=== PATIENT | female | born 1965 | race Two or more races ===

== ENCOUNTER → 2020-12-19 | Day surgery (SDC) | payer OTHER | END | disposition home or self-care (01) | LOC: FMAMMOTONE 11:27 | PROVIDERS: ATTEND Family Medicine | PROC: 0HBT3ZX Excision of Right Breast, Percutaneous Approach, Diagnostic (ICD-10-PCS; principal; 2020-12-19) | DX: D05.01 Lobular carcinoma in situ of right breast (principal); D05.11 Intraductal carcinoma in situ of right breast; N64.89 Other specified disorders of breast; R92.8 Other abnormal and inconclusive findings on diagnostic imaging of breast | CPT/HCPCS: 19081; 76098-TC-FY; 87899; 88305-TC; 88341-TC; 88342-TC; A4648 ==

== ENCOUNTER 2021-08-08 06:44 | Day surgery (SDC) | payer OTHER ==
[2021-08-06 15:52] VITALS: BMI 32.4
[2021-08-08] MEDS ORDERED: PROPOFOL 20 ML ONE (08:33)
[2021-08-08] MEDS ORDERED: MIDAZOLAM HCL 2 MG/2 ML SINGLE DOSE VIAL ONE (08:33)
[2021-08-08] MEDS ORDERED: BUPIVACAINE HCL 100 ML ONE (08:36)
[2021-08-08] MEDS ORDERED: LIDOCAINE HCL 2% JELLY (5 ML/TUBE) ONE (08:48)
[2021-08-08] MEDS ORDERED: LIDOCAINE HCL/PF 2% SDV 5ML VIAL ONE (08:48)
[2021-08-08] MEDS ORDERED: DEXAMETHASONE SOD PHOSPHATE 4 MG/1 ML VIAL ONE (08:56)
[2021-08-08] MEDS ORDERED: KETOROLAC TROMETHAMINE 30 MG/1 ML VIAL ONE (08:56)
[2021-08-08] MEDS ORDERED: ONDANSETRON 4 MG/2 ML VIAL ONE (08:56)
[2021-08-08] MEDS ORDERED: ceFAZolin SODIUM 1 GM VIAL ONE (08:56)
[2021-08-08] MEDS ORDERED: oxyCODONE HCL 5 MG TABLET PO PRN ×2 (09:57)
[2021-08-08] MEDS ORDERED: PROMETHAZINE HCL 25 MG/1 ML VIAL IVPUSH PRN (09:57)
[2021-08-08] MEDS ORDERED: ONDANSETRON 4 MG/2 ML VIAL IVPUSH PRN (09:57)
[2021-08-08 12:06] VITALS: BP 128/67; PULSE 69; TEMP 97.7
== END 2021-08-08 12:05 | disposition home or self-care (01) ==
LOC: FASU 06:44
PROVIDERS: ATTEND Orthopaedic Surgery Sports Medicine
PROC: 0SBC4ZZ Excision of Right Knee Joint, Percutaneous Endoscopic Approach (ICD-10-PCS; principal; 2021-08-08 09:16)
DX: S83.241A Other tear of medial meniscus, current injury, right knee, initial encounter (principal); M65.861 Other synovitis and tenosynovitis, right lower leg; M94.261 Chondromalacia, right knee; X58.XXXA Exposure to other specified factors, initial encounter; Y93.9 Activity, unspecified; Y92.9 Unspecified place or not applicable
CPT/HCPCS: 84703; 94760